=== PATIENT | female | born 1995 | race Caucasian/White ===

== ENCOUNTER 2017-01-03 15:18 | Emergency (ER) | payer OTHER ==
[~2017-01-03] VITALS: Ht 162.6 cm; Wt 67.0 kg
[2017-01-03 15:23] VITALS: BP 108/78; PULSE 83; RESP 16; TEMP 98.6; O2SAT 99
[2017-01-03] MEDS ORDERED: SODIUM CHLOR 0.9% 1000 ML INJ 1,000 ML IV ONE (15:40)
[2017-01-03] MEDS ORDERED: ONDANSETRON HCL 4 MG/2 ML VIAL IVP ONE (15:45)
[2017-01-03] MEDS ORDERED: SODIUM CHLORIDE 0.9% FLUSH 10 ML FLUSH IVF PRN (15:45)
--- NOTE | 2017-01-03 16:02 | PD ---
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 She apparently had an episode of repetitive questioning and disorientation last night, had an episode of syncope today. She states that she gets lightheaded before the syncope. She otherwise denies any vomiting, fevers, abdominal pains , chest pains, shortness of breath, or any other symptoms. Modifying Factors: None Associated Signs & Symptoms: Syncopal episodes Risk Factors: History of brain tumor PFSH Past Medical History Diminished Hearing: No Tetanus Vaccination: Unknown Influenza Vaccination: No ?: Not Past Surgical History Neurologic Surgery: Yes (Brain Tumor removal in 2010) Social History Alcohol Use: No Tobacco Use: No Substance Use: No Allergies-Medications (Allergen,Severity, Reaction): Coded Allergies: No Known Allergies (Unverified , 01/03/17) Review of Systems Except as stated in HPI: all other systems reviewed are Neg Physical Exam Narrative GENERAL: Well-developed young white female patient currently not in acute distress. Awake and oriented 3. SKIN: Focused skin assessment warm/dry. HEAD: Atraumatic. Normocephalic. EYES: Pupils equal and round. No scleral icterus. No injection or drainage. ENT: No nasal bleeding or discharge. Mucous membranes pink and moist. NECK: Trachea midline. No JVD. CARDIOVASCULAR: Regular rate and rhythm. No murmur appreciated. RESPIRATORY: No accessory muscle use. Clear to auscultation. Breath sounds equal bilaterally. GASTROINTESTINAL: Abdomen soft, non-tender, nondistended. Hepatic and splenic margins not palpable. MUSCULOSKELETAL: No obvious deformities. No clubbing. No cyanosis. No edema. NEUROLOGICAL: Awake and alert. No obvious cranial nerve deficits. Motor grossly within normal limits. Normal speech. PSYCHIATRIC: Appropriate mood and affect; insight and judgment normal. Data Data Last Documented VS Vital Signs Date Time Temp Pulse Resp B/P Pulse Ox O2 Delivery O2 Flow Rate FiO2 01/03/17 16:59 100 01/03/17 16:58 75 16 117/68 01/03/17 15:23 98.6 Orders Ed Urine Pregnancytest Poc (01/03/17 15:40) Complete Blood Count With Diff (01/03/17 15:40) Comprehensive Metabolic Panel (01/03/17 15:40) Magnesium (Mg) (01/03/17 15:40) Urinalysis - C+S If Indicated (01/03/17 15:40) Ecg Monitoring (01/03/17 15:40) Iv Access Insert/Monitor (01/03/17 15:40) Oximetry (01/03/17 15:40) Ondansetron Inj (Zofran Inj) (01/03/17 15:45) Sodium Chloride 0.9% Flush (Ns Flush) (01/03/17 15:45) Sodium Chlor 0.9% 1000 Ml Inj (Ns 1000 M (01/03/17 15:40) Ct Brain W/O Iv Contrast(Rout) (01/03/17 15:49) Labs Laboratory Tests Test 01/03/17 01/03/17 16:00 16:16 Urine Collection Type CLEAN CATCH Urine Color YELLOW Urine Turbidity CLEAR Urine pH 7.0 Urine Specific [place] 1.014 Urine Protein NEG mg/dL Urine Glucose (UA) NEG mg/dL Urine Ketones NEG mg/dL Urine Occult Blood NEG Urine Nitrite NEG Urine Bilirubin NEG Urine Leukocyte Esterase TRACE Urine WBC 3-5 /hpf Urine Squamous Epithelial 6-8 /hpf Cells Microscopic Urinalysis Comment CULT NOT INDICATED Urine Collection Time 16:00 White Blood Count 10.7 TH/MM3 Red Blood Count 5.32 MIL/MM3 Hemoglobin 14.8 GM/DL Hematocrit 44.6 % Mean Corpuscular Volume 83.9 FL Mean Corpuscular Hemoglobin 27.9 PG Mean Corpuscular Hemoglobin 33.3 % Concent Red Cell Distribution Width 13.0 % Platelet Count 231 TH/MM3 Mean Platelet Volume 9.8 FL Neutrophils (%) (Auto) 62.0 % Lymphocytes (%) (Auto) 22.8 % Monocytes (%) (Auto) 8.5 % Eosinophils (%) (Auto) 5.7 % Basophils (%) (Auto) 1.0 % Neutrophils # (Auto) 6.7 TH/MM3 Lymphocytes # (Auto) 2.4 TH/MM3 Monocytes # (Auto) 0.9 TH/MM3 Eosinophils # (Auto) 0.6 TH/MM3 Basophils # (Auto) 0.1 TH/MM3 CBC Comment DIFF FINAL Differential Comment Sodium Level 140 MEQ/L Potassium Level 3.7 MEQ/L Chloride Level 107 MEQ/L Carbon Dioxide Level 23.5 MEQ/L Anion Gap 10 MEQ/L Blood Urea Nitrogen 11 MG/DL Creatinine 0.62 MG/DL Estimat Glomerular Filtration 124 ML/MIN Rate Random Glucose 90 MG/DL Calcium Level 9.1 MG/DL Magnesium Level 2.2 MG/DL Total Bilirubin 0.4 MG/DL Aspartate Amino Transf 28 U/L (AST/SGOT) Alanine Aminotransferase 66 U/L (ALT/SGPT) Alkaline Phosphatase 87 U/L Total Protein 7.6 GM/DL Albumin 4.0 GM/DL MDM Medical Decision Making Medical Screen Exam Complete: Yes Emergency Medical Condition: Yes Medical Record Reviewed: Yes Interpretation(s) EKG shows NSR, no ST elevation or depression, and no arrhythmias. No significant T-wave inversions. Laboratory Tests Test 01/03/17 01/03/17 16:00 16:16 Urine Leukocyte Esterase TRACE (NEG) Urine Squamous Epithelial 6-8 /hpf (0-5) Cells Red Blood Count 5.32 MIL/MM3 (4.00-5.30) Monocytes (%) (Auto) 8.5 % (0.0-8.0) Eosinophils (%) (Auto) 5.7 % (0.0-4.0) Eosinophils # (Auto) 0.6 TH/MM3 (0-0.4) Alanine Aminotransferase 66 U/L (9-42) (ALT/SGPT) Last [address] 01/03/17 1549 Signed Impressions: Service Date/Time: December 16:40 - CONCLUSION: 1. 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 2. Nothing acute. Joselo Yang MD Differential Diagnosis Syncopal episodesacute intracranial processes versus seizures versus metabolic issues versus dehydration versus dysrhythmias Narrative Course Patient's father states that he thinks it could be related to low blood sugars since symptoms seems to have improved after he case something to eat to the patient Patient is alert and awake in the ER. She is conversant without issues. There are no focal neurological deficits. Lab work did not indicate any signs of acute processes. CT of the brain did not show any signs of acute intracranial processes. At this point, I have discussed observation admission briefly with patient and father versus close follow-up to primary care physician when they go home on Saturday. At this point, they state that they would rather be released with follow-up. She should return for any further episodes or new issues. She should try to stay hydrated, eat and drink appropriate times. The plan was discussed with the patient and she states understanding. Diagnosis Primary Impression: Syncope Disposition: 01 DISCHARGE HOME Condition: Stable Kendra Stallworth MD January 03, 2017 16:02
[2017-01-03 16:26] LABS: AUTOMATED NEUTROPHIL # 6.7 TH/MM3 (1.8-7.7); BASOPHIL # 0.1 TH/MM3 (0-0.2); EOSINOPHIL # 0.6 TH/MM3 (0-0.4); EOSINOPHIL % 5.7 % (0.0-4.0); HEMATOCRIT 44.6 % (35.0-46.0); LYMPH % 22.8 % (9.0-44.0); LYMPHOCYTE # 2.4 TH/MM3 (1.0-4.8); MEAN CELL VOLUME 83.9 FL (80.0-100.0); MEAN CORPUSCULAR HEMOGLOBIN 27.9 PG (27.0-34.0); MEAN CORPUSCULAR HGB CONC 33.3 % (32.0-36.0); MONO % 8.5 % (0.0-8.0); PLATELET COUNT 231 TH/MM3 (150-450); RED BLOOD COUNT 5.32 MIL/MM3 (4.00-5.30); WHITE BLOOD COUNT 10.7 TH/MM3 (4.0-11.0)
[2017-01-03 16:27] LABS: BLOOD, URINE NEG (NEG); GLUCOSE,URINE NEG (NEG); KETONE, URINE NEG (NEG); NITRITE,URINE NEG (NEG)
[2017-01-03 16:30] LABS: METHOD OF COLLECTION CLEAN CATCH; URINE COLOR YELLOW (YELLW/STRAW)
[2017-01-03 16:32] LABS: COMMENT (UR) CULT NOT INDICATED; CULTURE IF INDICATED CULT NOT INDICATED
[2017-01-03 16:36] LABS: HEMO FLAGS DIFF FINAL
[2017-01-03 16:38] LABS: CHLORIDE 107 MEQ/L (98-107); POTASSIUM 3.7 MEQ/L (3.5-5.1); SODIUM (NA) 140 MEQ/L (136-145)
[2017-01-03 16:42] LABS: ANION GAP 10 MEQ/L (5-15); BICARBONATE 23.5 MEQ/L (21.0-32.0); BLOOD UREA NITROGEN 11 MG/DL (7-18); MAGNESIUM 2.2 MG/DL (1.5-2.5)
[2017-01-03 16:45] LABS: ALT (GPT) 66 U/L (9-42); GLOMERULAR FILTRATION RATE 124 ML/MIN (>89)
[2017-01-03 16:46] LABS: AST (GOT) 28 U/L (16-38); TOTAL BILIRUBIN ADULT 0.4 MG/DL (0.2-1.0)
[2017-01-03 16:48] LABS: ALKALINE PHOSPHATASE 87 U/L (45-117)
[2017-01-03 16:58] VITALS: BP 117/68; PULSE 75; RESP 16; O2SAT 100
[2017-01-03 16:59] VITALS: O2SAT 100
--- NOTE | 2017-01-03 17:17 | RADHPO ---
EXAM DATE/TIME: 01/03/2017 16:40 [facility] COMPARISON: No previous studies available for comparison. INDICATIONS : Syncope. RADIATION DOSE: ?63.76 CTDIvol (mGy) MEDICAL HISTORY : Seizures. Brain tumor. SURGICAL HISTORY : Brain tumor removed. ENCOUNTER: Initial ACUITY: 1 day PAIN SCALE: 0/10 LOCATION: cranial TECHNIQUE: Multiple contiguous axial images were obtained of the head. Using automated exposure control and adj ustment of the mA and/or kV according to patient size, radiation dose was kept as low as reasonably a chievable to obtain optimal diagnostic quality images. FINDINGS: CEREBRUM: The ventricles are normal for age. Postsurgical changes with a right temporal craniotomy and subjacen t encephalomalacia changes predominantly involving the anteroinferior aspect of the right temporal lo be No extra-axial fluid collections are seen. POSTERIOR FOSSA: The cerebellum and brainstem are intact. The 4th ventricle is midline. The cerebellopontine angle i s unremarkable. EXTRACRANIAL: The visualized portion of the orbits is intact. SKULL: The calvaria is intact. No evidence of skull fracture. CONCLUSION: 1. 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 2. Nothing acute. Joselo Yang MD on January 03, 2017 at 17:12 Board Certified Radiologist. This report was verified electronically.
--- NOTE | 2017-01-04 06:40 | EKG ---
Date Performed: 01/03/2017 Time Performed: 17:27:52 PTAGE: 21 years EKG: Sinus rhythm Normal ECG NO PREVIOUS TRACING DOCTOR: Gianluca Allen Interpretating Date/Time 01/04/2017 06:40:08
== END 2017-01-03 17:57 | disposition home or self-care (01) ==
LOC: PHED 15:18
DX: R55 Syncope and collapse (principal); R42 Dizziness and giddiness; R56.9 Unspecified convulsions
CPT/HCPCS: 70450; 80053; 81001; 83735; 84703; 85025; 93005; 96361; 96374; 99284; J2405; J7030